=== PATIENT | female | born 1995 | race Caucasian/White ===

== ENCOUNTER 2024-02-13 14:53 | Emergency (ER) | payer MEDICAID, OTHER ==
[~2024-02-13] VITALS: Ht 160 cm; Wt 59.1 kg
[2024-02-13 19:09] VITALS: BP 113/72; PULSE 92; RESP 18; TEMP 98.2; O2SAT 100
[2024-02-13] MEDS: METHOCARBAMOL 500 MG TABLET PO ONE (19:20)
[2024-02-13] MEDS: ACETAMINOPHEN 325 MG TABLET PO ONE (19:20)
[2024-02-13] MEDS: IBUPROFEN 400 MG TABLET PO ONE (19:20)
[2024-02-13] MEDS ORDERED: METH-812 PO (22:13)
[2024-02-13] MEDS ORDERED: HYDR-4072 PO (22:27)
[2024-02-13] MEDS: HYDROCODONE/ACETAMINOPHEN 5-325 MG TABLET PO ONE (22:39)
== END 2024-02-13 23:12 | disposition home or self-care (01) ==
LOC: EMS 14:53
DX: M25.521 Pain in right elbow (principal); M25.551 Pain in right hip; Z90.89 Acquired absence of other organs
CPT/HCPCS: 99284; Z7502; Z7610

== ENCOUNTER 2024-10-01 12:27 | Emergency (ER) | payer OTHER ==
[~2024-10-01] VITALS: Ht 162.6 cm; Wt 66.8 kg
[~2024-10-01 12:27] MED LIST: HYDR-4072 PO; METH-812 PO
[2024-10-01 12:41] VITALS: TEMP 97.9
[2024-10-01 13:11] LABS: HCG,QUAL URINE NEGATIVE (NEGATIVE)
[2024-10-01 13:12] LABS: APPEARANCE,URINE HAZY (CLEAR); BILIRUBIN,URINE NEGATIVE (NEGATIVE); COLOR,URINE LIGHT YELLOW (YELLOW); GLUCOSE, URINE (UA) NEGATIVE (NEGATIVE); KETONES,URINE NEGATIVE (NEGATIVE); LEUKOCYTE ESTERASE ,URINE LARGE (NEGATIVE); NITRATE,URINE NEGATIVE (NEGATIVE); OCCULT BLOOD,URINE TRACE (NEGATIVE); PROTEIN,URINE TRACE mg/dL (NEGATIVE); SPECIFIC GRAVITIY, URINE 1.009 (1.003-1.030); UROBILINOGEN,URINE <=1.0 mg/dL (<=1.0)
[2024-10-01 13:24] VITALS: BP 111/72; PULSE 96; RESP 18; O2SAT 98
[2024-10-01 13:25] LABS: RBC,URINE 0-2 /HPF (0-2); WBC,URINE 51-100 /HPF (0-5)
[2024-10-01 13:26] LABS: BACTERIA,URINE Moderate /HPF (None Seen); SQUAMOUS EPITHELIAL CELL,UR Moderate /LPF (None Seen)
[2024-10-01] MEDS: CefTRIAXone SODIUM 1 GM/VIAL IM ONE (13:45)
[2024-10-01] MEDS: LIDOCAINE/PF 1% 2 ML VIAL IM ONE (13:45)
[2024-10-01] MEDS ORDERED: PHEN-674 PO (14:13)
[2024-10-01] MEDS ORDERED: CEPH-558 PO (14:13)
== END 2024-10-01 14:26 | disposition home or self-care (01) ==
LOC: EMS 12:32
DX: N39.0 Urinary tract infection, site not specified (principal); Z90.89 Acquired absence of other organs
CPT/HCPCS: 99283; 81001; 84703; 87077; 87086; 96372; J0696; J3490

== ENCOUNTER 2024-10-01 16:30 | Inpatient (IN) | payer OTHER ==
[~2024-10-01] VITALS: Ht 162.6 cm; Wt 75.9 kg
[~2024-10-01 16:30] MED LIST changes: +CEPH-558 PO; +PHEN-674 PO
[2024-10-01] MEDS ORDERED: 0.9% SODIUM CHLORIDE 10 ML SYRINGE IVP PRN (16:45)
[2024-10-01] MEDS: SODIUM CHLORIDE 0.9% 2,000 ML IV ONE (16:53)
[2024-10-01 17:04] LABS: BASOPHILS % (AUTO) 0.4 % (0.0-2.0); EOSINOPHILS % (AUTO) 0.3 % (1.0-6.0); HEMATOCRIT 34.8 % (36-46); HEMOGLOBIN 11.3 g/dL (12.0-16.0); LYMPHOCYTES # (AUTO) 0.9 K/uL (1.0-4.8); LYMPHOCYTES % (AUTO) 6.5 % (22.0-44.0); MEAN CORPUSCULAR HEMOGLOBIN 29.3 pg (26.0-34.0); MEAN CORPUSCULAR HGB CONC 32.6 G/dL (31.0-37.0); MEAN CORPUSCULAR VOLUME 90 fL (80-100); MONOCYTES # (AUTO) 0.8 K/uL (0.1-1.0); MONOCYTES % (AUTO) 5.8 % (2.0-9.0); NEUTROPHILS # (AUTO) 11.7 K/uL (1.8-7.7); PLATELET COUNT (AUTO) 290 K/uL (150-450); RED BLOOD CELL COUNT(AUTO) 3.87 MIL/uL (4.00-5.20); RED CELL DISTRIBUTION WIDTH 13.2 % (11.5-14.5); WHITE BLOOD COUNT (AUTO) 13.4 K/uL (4.5-11.0)
[2024-10-01 17:22] LABS: ANION GAP 9 mmol/L (8-16); CALCIUM, TOTAL 7.9 mg/dL (8.8-10.5); CARBON DIOXIDE 25 mmol/L (22-29); CHLORIDE 105 mmol/L (98-107); CREATININE 0.64 mg/dL (0.60-1.30); GLOMERULAR FILTR. RATE CALC > 60 mL/min (>60); GLUCOSE,RANDOM 97 mg/dL (70-110); POTASSIUM 3.8 mmol/L (3.5-5.1); SODIUM SERUM 139 mmol/L (136-145); UREA NITROGEN, BLOOD 11 mg/dL (7-18)
[2024-10-01] MEDS: CefTRIAXone 1 GM/DEXTROSE 50 ML IV ONE (17:23)
[2024-10-01 17:36] LABS: D-DIMER 0.37 mg/L FEU (0.00-0.50); PROTHROMBIN TIME 11.6 SEC (9.4-11.6)
[2024-10-01] MEDS: OxyCODONE HCL/ACETAMINOPHEN 5-325 MG TABLET PO PRN (17:55)
[2024-10-01] MEDS: ONDANSETRON HCL 4 MG/2 ML VIAL IVP PRN (17:56)
[2024-10-01] MEDS ORDERED: ACETAMINOPHEN 1000 MG/ISO-OSM 100 ML IV ONE (17:58)
[2024-10-01] MEDS: ACETAMINOPHEN 1000 MG/ISO-OSM 100 ML IV ONE (18:00)
[2024-10-01] MEDS: SODIUM CHLORIDE 0.9% 1,000 ML IV SCH (18:03)
[2024-10-01] MEDS: MORPHINE SULFATE 2 MG/ML SYRINGE IVP ONE (18:07)
[2024-10-01 20:20] VITALS: BP 103/62; PULSE 98; RESP 18; TEMP 98.1; O2SAT 98
[2024-10-01] MEDS: ACETAMINOPHEN 325 MG TABLET PO PRN (21:35)
[2024-10-02] VITALS (7 sets, daily range): BP systolic 90–104; BP diastolic 55–63; PULSE 72–95; RESP 16–19; TEMP 97.8–98.8; O2SAT 96–99
[2024-10-02 07:03] LABS: BASOPHILS % (AUTO) 0.5 % (0.0-2.0); EOSINOPHILS % (AUTO) 1.2 % (1.0-6.0); HEMATOCRIT 30.8 % (36-46); HEMOGLOBIN 10.4 g/dL (12.0-16.0); LYMPHOCYTES # (AUTO) 2.3 K/uL (1.0-4.8); LYMPHOCYTES % (AUTO) 22.5 % (22.0-44.0); MEAN CORPUSCULAR HEMOGLOBIN 30.2 pg (26.0-34.0); MEAN CORPUSCULAR HGB CONC 33.7 G/dL (31.0-37.0); MEAN CORPUSCULAR VOLUME 90 fL (80-100); MONOCYTES # (AUTO) 0.9 K/uL (0.1-1.0); MONOCYTES % (AUTO) 8.9 % (2.0-9.0); NEUTROPHILS # (AUTO) 6.7 K/uL (1.8-7.7); NEUTROPHILS % (AUTO) 66.9 % (40.0-70.0); PLATELET COUNT (AUTO) 275 K/uL (150-450); RED BLOOD CELL COUNT(AUTO) 3.44 MIL/uL (4.00-5.20); RED CELL DISTRIBUTION WIDTH 13.4 % (11.5-14.5)
[2024-10-02 07:21] LABS: ANION GAP 5 mmol/L (8-16); CALCIUM, TOTAL 7.7 mg/dL (8.8-10.5); CARBON DIOXIDE 26 mmol/L (22-29); CHLORIDE 109 mmol/L (98-107); CREATININE 0.62 mg/dL (0.60-1.30); GLOMERULAR FILTR. RATE CALC > 60 mL/min (>60); GLUCOSE,RANDOM 99 mg/dL (70-110); POTASSIUM 3.4 mmol/L (3.5-5.1); SODIUM SERUM 140 mmol/L (136-145); UREA NITROGEN, BLOOD 7 mg/dL (7-18)
[2024-10-02] MEDS: FAMOTIDINE 20 MG TABLET PO SCH (09:08)
[2024-10-02] MEDS: POTASSIUM CHLORIDE 20 MEQ ER TABLET PO ONE (12:40)
[2024-10-02] MEDS: CefTRIAXone 1 GM/DEXTROSE 50 ML IV SCH (12:40)
[2024-10-02] MEDS: PHENAZOPYRIDINE HCL 100 MG TABLET PO SCH (15:13)
[2024-10-03] VITALS (7 sets, daily range): BP systolic 99–106; BP diastolic 60–69; PULSE 72–89; RESP 16–18; TEMP 97.9–99; O2SAT 95–100
[2024-10-03 06:59] LABS: BASOPHILS % (AUTO) 3.1 % (0.0-2.0); EOSINOPHILS % (AUTO) 1.9 % (1.0-6.0); LYMPHOCYTES % (AUTO) 23.6 % (22.0-44.0); MEAN CORPUSCULAR HEMOGLOBIN 30.1 pg (26.0-34.0); MEAN CORPUSCULAR HGB CONC 33.4 G/dL (31.0-37.0); MEAN CORPUSCULAR VOLUME 90 fL (80-100); MONOCYTES # (AUTO) 0.7 K/uL (0.1-1.0); MONOCYTES % (AUTO) 7.9 % (2.0-9.0); NEUTROPHILS # (AUTO) 5.5 K/uL (1.8-7.7); NEUTROPHILS % (AUTO) 63.5 % (40.0-70.0); PLATELET COUNT (AUTO) 278 K/uL (150-450); RED BLOOD CELL COUNT(AUTO) 3.66 MIL/uL (4.00-5.20); RED CELL DISTRIBUTION WIDTH 13.3 % (11.5-14.5); WHITE BLOOD COUNT (AUTO) 8.6 K/uL (4.5-11.0)
[2024-10-03 07:08] LABS: ANION GAP 9 mmol/L (8-16); CALCIUM, TOTAL 7.9 mg/dL (8.8-10.5); CARBON DIOXIDE 27 mmol/L (22-29); CHLORIDE 107 mmol/L (98-107); GLOMERULAR FILTR. RATE CALC > 60 mL/min (>60); GLUCOSE,RANDOM 90 mg/dL (70-110); POTASSIUM 3.9 mmol/L (3.5-5.1); SODIUM SERUM 143 mmol/L (136-145); UREA NITROGEN, BLOOD 5 mg/dL (7-18)
[2024-10-03 16:08] LABS: APPEARANCE,URINE CLEAR (CLEAR); BILIRUBIN,URINE NEGATIVE (NEGATIVE); COLOR,URINE YELLOW (YELLOW); GLUCOSE, URINE (UA) NEGATIVE (NEGATIVE); KETONES,URINE NEGATIVE (NEGATIVE); LEUKOCYTE ESTERASE ,URINE NEGATIVE (NEGATIVE); NITRATE,URINE NEGATIVE (NEGATIVE); OCCULT BLOOD,URINE NEGATIVE (NEGATIVE); PH,URINE 7.5 (5.0-8.0); PROTEIN,URINE NEGATIVE (NEGATIVE); SPECIFIC GRAVITIY, URINE 1.006 (1.003-1.030); UROBILINOGEN,URINE <=1.0 mg/dL (<=1.0)
[2024-10-03] MEDS: MAGNESIUM HYDROXIDE SUSPENSION 30 ML UDCUP PO PRN (16:46)
[2024-10-04 06:30] VITALS: BP 90/56; PULSE 73; RESP 16; TEMP 98.6; O2SAT 98
[2024-10-04 08:09] VITALS: BP 99/61; PULSE 80; RESP 18; TEMP 98.1; O2SAT 99
[2024-10-04] MEDS ORDERED: NITR100C4 PO (11:33)
[2024-10-04 12:34] VITALS: BP 100/60; PULSE 76; RESP 18; TEMP 98.2; O2SAT 96
[2024-10-04 16:26] VITALS: BP 100/60; PULSE 84; RESP 16; TEMP 98; O2SAT 97
== END 2024-10-04 20:30 | disposition home or self-care (01) | DRG 720 ==
LOC: EMS 16:30 → EDH 16:57 → 5S 20:24
PROVIDERS: ADMIT Internal Medicine; ATTEND Internal Medicine
DX: A41.9 Sepsis, unspecified organism (principal); D64.9 Anemia, unspecified; E87.6 Hypokalemia; N39.0 Urinary tract infection, site not specified
CPT/HCPCS: 71045; 76856; 80048; 81003; 83605; 84145; 84703; 85025; 85379; 85610; 87040; 87389; 87491; 87591; 93005; 99291; J0131; J0696; J2270; J2405; J7030; 36415-L1; 36415-TC

== ENCOUNTER 2025-01-17 15:19 | Emergency (ER) | payer OTHER ==
[~2025-01-17] VITALS: Ht 167.6 cm; Wt 77.3 kg
[~2025-01-17 15:19] MED LIST changes: -CEPH-558 PO; -HYDR-4072 PO; -METH-812 PO; +NITR100C4 PO
[2025-01-17 15:31] VITALS: BP 94/58; PULSE 88; RESP 18; TEMP 97.9; O2SAT 98
[2025-01-17] MEDS: SULFAMETHOX/TRIMETH DS 800-160 MG/TABLET PO ONE (15:49)
[2025-01-17] MEDS: CEPHALEXIN MONOHYDRATE 500 MG CAPSULE PO ONE (15:49)
[2025-01-17] MEDS ORDERED: SULF-261 PO (15:56)
[2025-01-17] MEDS ORDERED: CEPH-558 PO (15:56)
== END 2025-01-17 16:13 | disposition home or self-care (01) ==
LOC: EMS 15:19
DX: L03.116 Cellulitis of left lower limb (principal); Z90.89 Acquired absence of other organs
CPT/HCPCS: 99284; Z7502; Z7610

== ENCOUNTER 2025-01-19 19:25 | Emergency (ER) | payer OTHER ==
[~2025-01-19] VITALS: Ht 162.6 cm; Wt 67.3 kg
[~2025-01-19 19:25] MED LIST changes: +CEPH-558 PO; -NITR100C4 PO; -PHEN-674 PO; +SULF-261 PO
[2025-01-19 19:33] VITALS: BP 103/65; PULSE 101; RESP 18; TEMP 97.7; O2SAT 96
[2025-01-19] MEDS: LIDOCAINE 1% 10 ML VIAL SQ ONE (23:09)
== END 2025-01-20 00:10 | disposition home or self-care (01) ==
LOC: EMS 19:25
DX: L02.416 Cutaneous abscess of left lower limb (principal); L03.116 Cellulitis of left lower limb; Z90.89 Acquired absence of other organs
CPT/HCPCS: 99283; 10060; J3490

== ENCOUNTER 2025-04-17 11:30 | Emergency (ER) | payer OTHER ==
[~2025-04-17] VITALS: Ht 160 cm; Wt 69.5 kg
[~2025-04-17 11:30] MED LIST changes: -SULF-261 PO; +SULF1TAB94 PO
[2025-04-17 11:33] VITALS: BP 96/74; PULSE 76; RESP 18; TEMP 97.9; O2SAT 95
[2025-04-17 12:23] LABS: APPEARANCE,URINE CLEAR (CLEAR); GLUCOSE, URINE (UA) NEGATIVE (NEGATIVE); LEUKOCYTE ESTERASE ,URINE TRACE (NEGATIVE); NITRATE,URINE NEGATIVE (NEGATIVE); OCCULT BLOOD,URINE NEGATIVE (NEGATIVE); SPECIFIC GRAVITIY, URINE 1.027 (1.003-1.030)
[2025-04-17 12:26] LABS: HCG,QUAL URINE NEGATIVE (NEGATIVE)
[2025-04-17 12:41] LABS: SQUAMOUS EPITHELIAL CELL,UR Moderate /LPF (None Seen)
[2025-04-17] MEDS ORDERED: NITR-104 PO (12:57)
== END 2025-04-17 13:19 | disposition home or self-care (01) ==
LOC: EMS 11:30
DX: N39.0 Urinary tract infection, site not specified (principal); Z90.89 Acquired absence of other organs; R10.24 Suprapubic pain
CPT/HCPCS: 81001; 84703; 87077; 87086; 87186; 99283